=== PATIENT | female | born 1965 | race Hispanic/Latino ===

== ENCOUNTER 2018-10-09 16:39 | Emergency (ER) | payer OTHER | END 2018-10-09 17:45 | disposition home or self-care (01) | LOC: ERS 16:39 | DX: S40.012A Contusion of left shoulder, initial encounter (principal); M54.5 Low back pain; M54.2 Cervicalgia; G43.909 Migraine, unspecified, not intractable, without status migrainosus; I10 Essential (primary) hypertension; V49.40XA Driver injured in collision with unspecified motor vehicles in traffic accident, initial encounter | CPT/HCPCS: 99283 ==

== ENCOUNTER 2021-06-24 07:52 | Outpatient (CLI) | payer OTHER | END 2021-06-24 07:53 | disposition home or self-care (01) | LOC: BICULT 07:52 | PROVIDERS: ATTEND Family Medicine | DX: N88.8 Other specified noninflammatory disorders of cervix uteri (principal); R93.89 Abnormal findings on diagnostic imaging of other specified body structures | CPT/HCPCS: 76856 ==